=== PATIENT | female | born 1950 | race Caucasian/White ===

== ENCOUNTER 2023-12-10 07:22 | Day surgery (SDC) | payer MEDICARE, OTHER ==
[~2023-12-10] VITALS: Ht 160 cm; Wt 63.8 kg
[2023-12-10] VITALS (13 sets, daily range): BP systolic 119–141; BP diastolic 6–82; PULSE 75–91; TEMP 97.4–98.4
[2023-12-10] MEDS ORDERED: 1/2 NS 1,000 ML IV SCH (08:30)
[2023-12-10] MEDS ORDERED: ceFAZolin 1 G in Water For Injection,Sterile 10 ML IV SCH ×2 (08:30→13:14)
[2023-12-10 08:31] LABS: BASO % 0.5 % (0.0-2.0); EOS # 0.1 K/mm3 (0.0-0.7); EOS % 1.4 % (0.0-4.0); GRAN # 3.9 K/mm3 (1.4-6.5); GRAN % 59.4 % (42.2-75.2); HEMOGLOBIN 11.8 g/dl (12.5-16.0); LYMPH % 31.2 % (20.0-51.0); MEAN CELL VOLUME 97 fl (80.0-100.0); MEAN CORPUSCULAR HEMOGLOBIN 32 pg (27-31); MEAN CORPUSCULAR HGB CONC 33 g/dl (33.0-37.0); MEAN PLATELET VOLUME 10.6 fl (7.4-10.4); MONO # 0.5 K/mm3 (0.1-0.6); MONO % 7.3 % (1.7-9.3); PLATELET COUNT 184 K/mm3 (130-400); RED BLOOD COUNT 3.73 M/mm3 (4.10-5.30); REDCELL DISTRIBUTION WIDTH-CV 15.6 % (11.5-14.5)
[2023-12-10 08:34] LABS: HEMATOCRIT 36.3 % (37.0-47.0)
[2023-12-10 08:53] LABS: PROTHROMBIN TIME 11.3 SECONDS (9.7-12.8)
[2023-12-10 08:54] LABS: CALCIUM 9.6 mg/dL (8.4-10.2); CREATININE, serum 1.06 mg/dL (0.57-1.11); POTASSIUM 3.8 mmol/L (3.5-4.5)
[2023-12-10] MEDS ORDERED: ASPIRIN 81M81 MG/TA2 PO (08:56)
[2023-12-10] MEDS ORDERED: LIPITOR 80MG80 MG PO (08:57)
[2023-12-10] MEDS ORDERED: ALDACTONE 25MG25 M1 PO (08:59)
[2023-12-10] MEDS ORDERED: BRILINTA90 MG PO (08:59)
[2023-12-10] MEDS ORDERED: COZAAR 25MG25 MG/TAB PO (08:59)
[2023-12-10] MEDS ORDERED: NATURAL MAGNES200 MG PO (09:00)
[2023-12-10] MEDS ORDERED: NATURAL POTASS595 MG PO (09:00)
[2023-12-10] MEDS ORDERED: TOPROL XL 25MG25 MG PO (09:00)
[2023-12-10] MEDS ORDERED: LASIX 40MG TABL40 MG PO (09:01)
[2023-12-10] MEDS ORDERED: NITROSTAT0.4 MG/TAB SL (09:02)
[2023-12-10] MEDS ORDERED: NS 1,000 ML IV.SOLN. IR SCH (11:12)
[2023-12-10] MEDS ORDERED: fentaNYL 50 MCG/ML 2 ML VIAL IV SCH (11:59)
[2023-12-10] MEDS ORDERED: Midazolam 2 MG/2 ML VIAL IV SCH (12:00)
--- NOTE | 2023-12-10 12:02 | NUR ---
See merge for all medication, assessment, intervention, and vital sign times. Dr. Black advised prior to procedure patient had an allergy to an unknown pain medication post hysterectomy, noted patient received Fentanyl with her last heart cath, no reaction noted. Dr. Black ok with proceeding with Versed & Fentanyl for moderate sedation.
--- NOTE | 2023-12-10 12:35 | NUR ---
Bedside report completed with Magdalena MRIANDA. Call light within reach, telemetry box in place. HOB 30 degrees, first set of vitals reviewed. Hematoma noted at insertion site, direct pressure held for 12 minutes, hematoma reduced, soft to touch. 0.9% NaCl in place but clamped off. Pressure dressing & ice pack in place. Dr. Black notified. Magdalena MIRANDA denies questions/concerns.
[2023-12-10] MEDS ORDERED: Acetaminophen 500 MG TAB PO PRN (13:00)
[2023-12-10] MEDS ORDERED: Magnesium Oxide 400 MG TAB PO SCH (17:00)
--- NOTE | 2023-12-10 17:32 | NUR ---
Patient arrived, via bed, to room 317 from medical laboratory specialist- s/p ICD placement. Pt had hematoma developing upon arrival. Daryl Mathias RN placed manual pressure to site and placed pressure dressing. Site has been soft and dressing CDI. Pt reports pain 2/10 and declines offer for Tylenol. Tolerating diet without c/o nausea.
--- NOTE | 2023-12-10 20:00 | NUR ---
Assessment complete. A&Ox4. Denies pain/nausea/shortness of breath. VS stable. TELE reporting SR> INT to left AC flushes without difficulty. Sling in place. Refusing ice to site. Pressure dressing to left chest CDI. Plan of care discussed for this shift to include meds/pain control/calling for questions/concerns. Verbalizes understanding. Will monitor.
[2023-12-10] MEDS ORDERED: Ticagrelor 90 MG TAB PO SCH (21:00)
[2023-12-11] VITALS (13 sets, daily range): BP systolic 112–149; BP diastolic 54–86; PULSE 89–102; TEMP 97.8–98.2
--- NOTE | 2023-12-11 05:45 | NUR ---
Patient had an uneventful night. TELE reporting SR. Currently on RA. VS stable. Pressure dressing to left chest CDI. Patient has been NPO since 0000 per order. Sling on. Refused ice pack. Received tylenol x1 for ICD site ache. Denies current needs. Call light in reach. Will monitor.
--- NOTE | 2023-12-11 08:00 | NUR ---
Assessment complete. Pt denies pain. NPO for procedure this morning.
--- NOTE | 2023-12-11 08:25 | NUR ---
Pt to slab installer via bed for procedure.
[2023-12-11] MEDS ORDERED: Furosemide 40 MG TAB PO SCH (09:00)
[2023-12-11] MEDS ORDERED: Spironolactone 25 MG TAB PO SCH (09:00)
[2023-12-11] MEDS ORDERED: Losartan 25 MG TAB PO SCH (09:00)
--- NOTE | 2023-12-11 09:06 | NUR ---
SEE MERGE DOCUMENTATION FOR MEDICATION ADMINISTRATION AND INTRA/POST PROCEDURE SEDATION ASSESSMENTS.
[2023-12-11] MEDS ORDERED: Midazolam 2 MG/2 ML VIAL IV SCH (09:26)
[2023-12-11] MEDS ORDERED: fentaNYL 50 MCG/ML 2 ML VIAL IV SCH (09:28)
[2023-12-11] MEDS ORDERED: CEPHALEXIN500 M1 PO (09:31)
--- NOTE | 2023-12-11 09:39 | NUR ---
Bedside report completed with Magdalena MIRANDA. First set of vitals reviewed, call light within reach, telemetry box in place. Magdalena RN denies questions/concerns.
--- NOTE | 2023-12-11 09:49 | NUR ---
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 A/O x4. Reports pain 1-01/03. Declines offer for Tylenol. Dressing to ICD CDI. VSS- see flowsheet. Sling in place.
--- NOTE | 2023-12-11 12:55 | NUR ---
Discharge instructions reviewed with patient- verbalizes understanding. Micha called to [facility] pharmacy in [place] since patient unable to go to [facility] for medication. INT d/c'd with cath tip intact. Tele d/c'd. Pt escorted to private vehicle via w/c and discharged home with friend.
[2023-12-11] MEDS ORDERED: Cephalexin 500 MG CAP PO SCH (21:00)
== END 2023-12-11 12:57 | disposition home or self-care (01) ==
LOC: COL.CAR 07:22 → MEDICAL 13:45 → COL.CAR 12-11 12:57
PROVIDERS: Internal Medicine Cardiovascular Disease
DX: I25.5 Ischemic cardiomyopathy (principal); I25.10 Atherosclerotic heart disease of native coronary artery without angina pectoris; I12.9 Hypertensive chronic kidney disease with stage 1 through stage 4 chronic kidney disease, or unspecified chronic kidney disease; N18.9 Chronic kidney disease, unspecified; I25.2 Old myocardial infarction; E78.2 Mixed hyperlipidemia; Z79.899 Other long term (current) drug therapy; Z95.5 Presence of coronary angioplasty implant and graft; Z79.82 Long term (current) use of aspirin; Z79.02 Long term (current) use of antithrombotics/antiplatelets
CPT/HCPCS: OP; J0665; J0690; J2250; J3010; J7030